=== PATIENT | female | born 1975 | race Caucasian/White ===

== ENCOUNTER 2023-08-13 22:43 | Emergency (ER) | payer SELFPAY ==
[~2023-08-13] VITALS: Ht 172.7 cm; Wt 108.9 kg
[~2023-08-13 22:43] MED LIST: ANAPROX DS550 MG PO; CIPROFLOXACIN500 MG PO; PYRIDIUM100 MG PO; TRAMADOL HCL50 MG PO
== END 2023-08-13 23:49 | disposition home or self-care (01) ==
LOC: ED 22:43
DX: L53.9 Erythematous condition, unspecified (principal); M79.89 Other specified soft tissue disorders; T36.0X5A Adverse effect of penicillins, initial encounter; T36.1X5A Adverse effect of cephalosporins and other beta-lactam antibiotics, initial encounter; Z88.8 Allergy status to other drugs, medicaments and biological substances; Z98.890 Other specified postprocedural states; Y92.009 Unspecified place in unspecified non-institutional (private) residence as the place of occurrence of the external cause